=== PATIENT | female | born 1985 | race African-American/Black ===

== ENCOUNTER 2020-02-29 06:51 | Emergency (ER) | payer OTHER ==
[~2020-02-29] VITALS: Ht 177.8 cm; Wt 86.3 kg
[2020-02-29 07:08] VITALS: BP 132/91
[2020-02-29] MEDS ORDERED: POLY10DR EACHEYE (07:10)
--- NOTE | 2020-02-29 07:10 | PHYS DOC ---
Past History Past Medical History eczema Drug Use: None General Adult EDM: Chief Complaint: EYE PROBLEMS HPI: HPI: Patient is a 35 year old female with a 1 days history of injected eyes. no blurry vision. no hx of trauma. no uri sx. no sneezing. pt w/ chronic eczema that has been acting up for the past 6 months Review of Systems: Review of Systems: Constitutional: Denies fever or chills Eyes: Denies change in visual acuity , c/o eye redness HENT: Denies nasal congestion or sore throat Respiratory: Denies cough or shortness of breath Cardiovascular: Denies chest pain or edema GI: Denies abdominal pain, nausea, vomiting, bloody stools or diarrhea : Denies dysuria Musculoskeletal: Denies back pain or joint pain Integument: c/o rash for 6 months Neurologic: Denies headache, focal weakness or sensory changes Endocrine: Denies polyuria or polydipsia Lymphatic: Denies swollen glands Psychiatric: Denies depression or anxiety Heart Score: Risk Factors: Risk Factors: DM, Current or recent (<one month) smoker, HTN, HLP, family history of CAD, obesity. Risk Scores: Score 0 - 3: 2.5% MACE over next 6 weeks - Discharge Home Score 4 - 6: 20.3% MACE over next 6 weeks - Admit for Clinical Observation Score 7 - 10: 72.7% MACE over next 6 weeks - Early Invasive Strategies Allergies: Allergies: Allergies Coded Allergies Type Severity Reaction Last Updated Verified No Known Drug Allergies 02/29/20 No Physical Exam: PE: Constitutional: Well developed, well nourished, no acute distress, non-toxic appearance. [] HENT: Normocephalic, atraumatic, bilateral external ears normal,no trismus nose normal. [] Eyes: PERRLA, EOMI, conjunctiva injected Neck: Normal range of motion, no tenderness, supple, no stridor. [] Cardiovascular:Heart rate regular rhythm, peripheral pulses intact Lungs & Thorax: Bilateral breath sounds clear, no respiratory distress Abdomen: soft, nt Skin: Warm, dry,diffuse eczematous rash, no s/s of superinfectoin Back: No tenderness, no CVA tenderness. [] Extremities: No tenderness, no cyanosis, no clubbing, ROM intact, no edema. [] Neurologic: Alert and oriented X 3, normal motor function, normal sensory function, no focal deficits noted. [] Psychologic: Affect normal, judgement normal, mood normal. [] EKG: EKG: [] Radiology/Procedures: Radiology/Procedures: [] Course & Med Decision Making: Course & Med Decision Making Pertinent Labs and Imaging studies reviewed. (See chart for details) []35 yo w/ conjunctivitis. no other sx. doubt covid but return precautions given. Dragon Disclaimer: Dragon Disclaimer: This electronic medical record was generated, in whole or in part, using a voice recognition dictation system. Departure Departure: Impression: Primary Impression: Conjunctivitis Disposition: HOME/RESIDENCE PRIOR TO ADM Condition: STABLE Referrals: PCP,JAMES (PCP) TITO FOUNTAIN MD 2-3 days Patient Instructions: Eye - Viral Conjunctivitis Additional Instructions: EMERGENCY DEPARTMENT GENERAL DISCHARGE INSTRUCTIONS THANK YOU for coming to [facility] Emergency Department (ED) today and trusting us with your care. We trust that you had a positive experience in our Emergency Department. If you wish to speak to the department Management you can contact the emergency department at YOUR FOLLOW UP INSTRUCTIONS ARE FOLLOWS: Do you have a private doctor? If you do not have a private doctor, please ask fo r a resource list of physicians or clinics that may be able to assist you with follow up care. The Emergency Physician has interpreted your x-rays. The X-ray specialist will also review them. If there is a change in the findings you will be notified in 48 hours when at all possible. A lab test or lab culture may have been done, your results will be reviewed and you will be notified if you need a change in treatment. ADDITIONAL INSTRUCTIONS AND INFORMATION Your care today has been supervised by a physician who is specially trained in emergency care. Many problems require more than one evaluation for a complete diagnosis and treatment. We recommend that you schedule your follow up appointment as recommended to ensure complete treatment of your illness or injury. If you are unable to obtain follow up care and continue to have a problem, or if your condition worsens we recommend that you return to the ED. We are not able to safely determine your condition over the phone nor are we able to give sound medical advice over the phone. For these safety reasons, if you call for medical advice we will ask you to come to the ED for further evaluation If you have any questions regarding these discharge instructions please call the ED at . SAFETY INFORMATION In the interest of safety, wellness, and injury prevention; we encourage you to wear your seatbelt, if you smoke; quit smoking, and we encourage your family to use protective helmet for bicycling and other sporting events that present an increased risk for head injury. IF YOUR SYMPTOMS WORSEN OR NEW SYMPTOMS DEVELOP, OR YOU HAVE CONCERNS ABOUT YOUR CONDITION; OR IF YOUR CONDITION WORSENS WHILE YOU ARE WAITING FOR YOUR FOLLOW UP APPOINTMENT; EITHER CONTACT YOUR PRIMARY CARE DOCTOR, THE PHYSICIAN WHOSE NAME AND NUMBER YOU WERE GIVEN, OR RETURN TO THE ED IMMEDIATELY. Scripts Polymyxin B Sulf/Trimethoprim (POLYTRIM EYE DROPS) 10 Ml Drops 1 DROP EACHEYE Q6HRS for conjunctivitis, #10 ML Prov: HARLEY SOUTH MD 02/29/20 Justification of Admission: Justification of Admission: Justification of Admission Dx: N/A HARLEY SOUTH MD Feb 29, 2020 07:10
== END 2020-02-29 07:16 | disposition home or self-care (01) ==
LOC: ER 06:51
DX: H10.9 Unspecified conjunctivitis (principal); L30.9 Dermatitis, unspecified
CPT/HCPCS: 99283

== ENCOUNTER 2020-04-01 07:13 | Emergency (ER) | payer OTHER ==
[~2020-04-01] VITALS: Ht 167.6 cm; Wt 77.3 kg
[~2020-04-01 07:13] MED LIST: POLY10DR EACHEYE
[2020-04-01 07:18] VITALS: BP 154/94
--- NOTE | 2020-04-01 07:40 | PHYS DOC ---
Past History Past Medical History: Other Additional Past Medical Histor: eczema Past Surgical History: Cholecystectomy, , Tubal ligation Alcohol Use: Occasionally Drug Use: None Adult General Chief Complaint Chief Complaint: RIB PAIN HPI HPI Patient is a 35-year-old female who presents with left upper quadrant mass. This was first noticed 1 week ago without any known inciting event and/or trauma. Nothing known makes better, she has not taken anything in attempt to alleviate the pain. Patient reports palpation and certain twisting upper body movements make worse. Pain is focal, nonradiating, and located just under left lateral portion of her rib cage. She reports a palpable mobile mass that is painful and reproducible with touch. Timing of symptoms has been constant since onset. She has scheduled outpatient follow-up with her primary care physician in 6 days but states she is unsure if she can make that visit due to the pain. She has history of and gallbladder removal, no other abdominal surgeries. Denies any other pertinent medical history. No concerning symptoms such as fever, chills, chest pain, shortness of breath, abdominal pain, nausea or vomit diarrhea, changes in bladder or bowel function, no COVID-19 contact Review of Systems Review of Systems Fourteen body systems of review of systems have been reviewed. See HPI for pertinent positives and negative responses, other morgan all other systems are negative, non-pertinent or non-contributory Allergies Allergies Allergies Coded Allergies Type Severity Reaction Last Updated Verified No Known Drug Allergies 02/29/20 No Physical Exam Physical Exam Constitutional: Well developed, well nourished, no acute distress, non-toxic appearance. HENT: Normocephalic, atraumatic, bilateral external ears normal, oropharynx moist, no oral exudates, nose normal. Eyes: PERRLA, EOMI, conjunctiva normal, no discharge. Neck: Normal range of motion, no tenderness, supple, no stridor. Cardiovascular: Heart rate regular, sinus rhythm, no murmurs rubs or gallops Lungs & Thorax: Bilateral breath sounds clear to auscultation Abdomen: Bowel sounds normal, soft, no guarding, no rebound, tenderness present to inferior portion of left rib cage with palpable cordlike mobile structure without fluctuance that is painful with palpation, no pulsatile masses. Nons urgical abdomen, no peritoneal signs Skin: Warm, dry, no erythema, no rash. Back: No tenderness, no CVA tenderness. Extremities: No tenderness, no cyanosis, no clubbing, ROM intact, no edema. Neurologic: Alert and oriented X 3, grossly normal motor & sensory function, no focal deficits noted. Psychologic: Affect normal, judgement normal, mood normal. Current Patient Data Vital Signs Vital Signs Date Time Temp Pulse Resp B/P (MAP) Pulse Ox O2 Delivery O2 Flow Rate FiO2 04/01/20 07:18 98.0 89 16 154/94 (114) 98 Room Air EKG EKG [] Radiology/Procedures Radiology/Procedures PROCEDURE: EXT NON VASC LEFT Nonvascular soft tissue ultrasound INDICATION: Left ventral abdominal wall mass that moves with respiration. COMPARISON: None. TECHNIQUE: Grayscale ultrasound imaging of the area of concern was performed in the transverse and longitudinal orientations FINDINGS: No soft tissue mass or bowel containing hernia is identified in the area of concern in the left supraumbilical ventral abdominal wall. IMPRESSION: Negative sonographic evaluation of the left abdominal wall mass. This can be further evaluated if clinically warranted with CT or MRI, potentially on an elective basis. Electronically signed by: Milo Jurado MD (04/01/2020 8:18 AM) [id number] Heart Score Risk Factors: Risk Factors: DM, Current or recent (<one month) smoker, HTN, HLP, family history of CAD, obesity. Risk Scores: Risk Factors: DM, Current or recent (<one month) smoker, HTN, HLP, family history of CAD, obesity. Course & Med Decision Making Course & Med Decision Making Pertinent Labs and Imaging studies reviewed. (See chart for details) Discussed most likely diagnosis of unspecified abdominal pain likely musculoskeletal in nature. I did disclose this might be an acute presentation more concerning pathology and thus, patient should keep her previously scheduled PCP follow-up in 6 days I advised supportive care with heat packs and NSAID use until seen in outpatient setting for reevaluation. She is hemodynamically stable, ambulatory and tolerating p.o. intake, she is safe for discharge home Strict return precautions were discussed with good understanding by patient, all questions and concerns addressed prior to ER departure in stable condition Dragon Disclaimer Dragon Disclaimer This electronic medical record was generated, in whole or in part, using a voice recognition dictation system. Departure Departure: Impression: Primary Impression: Abdominal pain, LUQ Disposition: 01 DC HOME SELF CARE/HOMELESS Condition: STABLE Referrals: PCP,NO (PCP) Additional Instructions: As discussed prior to ER departure, please keep your outpatient follow-up appointment with your primary care physician in 6 days as previously scheduled Please bring attached ultrasound findings with you to that visit. Continue using heating pad and NSAIDs such as Motrin daily with food until you are seen You will need to discuss with your primary care physician the utility of CT and/or MRI imaging in outpatient setting if this issue does not resolve Your evaluation was not suggestive of any emergent condition requiring medical intervention at this time. However, some abdominal problems make take more time to appear. Therefore, it is important for you to watch for any new symptoms or worsening of your current condition. Return to the Emergency Department if you experience worsening pain, persistent fevers greater than 100.4, recurrent vomiting, blood in vomit, blood in stool, dark tarry stool, chest pain, difficulty breathing, or any other concerning symptoms. CHASE EMMANUEL DO Apr 01, 2020 07:40
--- NOTE | 2020-04-01 08:21 | RAD ---
Nonvascular soft tissue ultrasound INDICATION: Left ventral abdominal wall mass that moves with respiration. COMPARISON: None. TECHNIQUE: Grayscale ultrasound imaging of the area of concern was performed in the transverse and longitudinal orientations FINDINGS: No soft tissue mass or bowel containing hernia is identified in the area of concern in the left supraumbilical ventral abdominal wall. IMPRESSION: Negative sonographic evaluation of the left abdominal wall mass. This can be further evaluated if clinically warranted with CT or MRI, potentially on an elective basis. Electronically signed by: Milo Jurado MD (04/01/2020 8:18 AM) [id number]
== END 2020-04-01 08:48 | disposition home or self-care (01) ==
LOC: ER 07:13
DX: R10.12 Left upper quadrant pain (principal); Z98.890 Other specified postprocedural states; Z98.51 Tubal ligation status; Z90.49 Acquired absence of other specified parts of digestive tract
CPT/HCPCS: 76881; 99284-25

== ENCOUNTER → 2020-08-04 | Outpatient (CLI) | payer OTHER ==
[~2020-08-04] MED LIST changes: +IOHEXOL 300 MG/ML 75 ML VIAL. IV ONE
--- NOTE | 2020-08-04 11:56 | RAD ---
EXAM: CT Abdomen with IV contrast INDICATION: Reason: ABDOMINAL MASS / Spl. Instructions: / History: TECHNIQUE: Multi-detector row CT images were acquired from the lung bases through the abdomen with th e use of IV contrast. Sagittal and coronal images were acquired from the transaxial data. All CT scan s performed at this facility utilize dose optimization techniques as appropriate to the exam, includi ng the following: Automated exposure control and adjustment of the mA and/or KV according to patient size (this includes techniques or standardized protocols for targeted exams where dose is indication/ reason for exam). IV CONTRAST: Administered ORAL CONTRAST: Not administered COMPARISON: None FINDINGS: LOWER CHEST: Unremarkable LIVER: Unremarkable BILIARY SYSTEM: Gallbladder is unremarkable. Bile ducts are not dilated. PANCREAS: Unremarkable SPLEEN: Unremarkable ADRENALS: Unremarkable KIDNEYS & URETERS: Unremarkable GASTROINTESTINAL: The stomach, small bowel, and colon are unremarkable. The appendix is normal. MESENTERY/PERITONEUM/RETROPERITONEUM: Unremarkable VASCULAR: Unremarkable LYMPH NODES: No adenopathy OSSEOUS & SOFT TISSUES: Lumbar sacral junction degenerative changes. IMPRESSION: Normal postcholecystectomy CT of the abdomen. No masses identified. Electronically signed by: Milo Jurado MD (08/04/2020 11:53 AM) [id number]
== END ==
LOC: CT 08:59
PROVIDERS: ATTEND Family Medicine
DX: R19.00 Intra-abdominal and pelvic swelling, mass and lump, unspecified site (principal)
CPT/HCPCS: 74160; Q9967

== ENCOUNTER → 2021-08-19 | Outpatient (CLI) | payer OTHER ==
[~2021-08-19] MED LIST changes: -IOHEXOL 300 MG/ML 75 ML VIAL. IV ONE
--- NOTE | 2021-08-19 13:28 | RAD ---
PA and lateral chest x-ray without comparison for methotrexate use long-term. FINDINGS: Lungs are clear. Cardiac mediastinum is grossly unremarkable. Gentle curvature of the thora cic spine. No other osseous abnormalities. IMPRESSION: 1. No acute cardiopulmonary abnormality. Electronically signed by: Clinton Ramirez MD (08/19/2021 1:25 PM) [id number]
== END ==
LOC: RAD 09:16
PROVIDERS: ATTEND Physician Assistant
DX: M43.8X4 Other specified deforming dorsopathies, thoracic region (principal); Z79.899 Other long term (current) drug therapy
CPT/HCPCS: 71046

== ENCOUNTER → 2021-08-25 | Outpatient (CLI) | payer OTHER ==
[2021-08-25 10:32] LABS: BASO # 0.1 x10^3/uL (0.0-0.2); BASO % 1 % (0-3); EOS # 0.2 x10^3/uL (0.0-0.7); EOS % 3 % (0-3); HEMATOCRIT 40.9 % (36.0-47.0); HEMOGLOBIN 13.4 g/dL (12.0-15.5); LYMPH # 1.5 x10^3/uL (1.0-4.8); LYMPH % 19 % (24-48); MEAN CORPUSCULAR HEMOGLOBIN 31 pg (25-35); MEAN CORPUSCULAR HGB CONC 33 g/dL (31-37); MEAN CORPUSCULAR VOLUME 94 fL (79-100); MONO # 0.4 x10^3/uL (0.0-1.1); MONO % 6 % (0-9); NEUT # 5.8 x10^3uL (1.8-7.7); NEUT % 72 % (31-73); PLATELET COUNT 322 x10^3/uL (140-400); RED BLOOD COUNT 4.34 x10^6/uL (3.50-5.40); RED CELL DISTRIBUTION WIDTH 13.7 % (11.5-14.5)
[2021-08-25 10:41] LABS: ALBUMIN 3.9 g/dL (3.4-5.0); ALBUMIN/GLOBULIN RATIO 1.1 (1.0-1.7); CALCIUM 9.2 mg/dL (8.5-10.1); CREATININE 0.8 mg/dL (0.6-1.0); GFR 99.4; POTASSIUM 4.5 mmol/L (3.5-5.1); TOTAL BILIRUBIN 0.3 mg/dL (0.2-1.0); TOTAL PROTEIN 7.6 g/dL (6.4-8.2)
[2021-08-25 17:35] LABS: CHOLESTEROL/HDL RATIO 1.8
== END ==
LOC: LAB 08:47
PROVIDERS: ATTEND Physician Assistant
DX: Z79.899 Other long term (current) drug therapy (principal)
CPT/HCPCS: 36415; 80053; 80061; 85025; 86481; 86705; 86709; 86803; 87340